=== PATIENT | female | born 1985 | race Caucasian/White ===

== ENCOUNTER 2017-01-21 23:41 | Emergency (ER) | payer OTHER ==
[~2017-01-21] VITALS: Ht 165.1 cm; Wt 117.9 kg
[~2017-01-21 23:41] MED LIST: ALBUTEROL2.5 MG/0.5 INH; AMOXICILLIN500 MG PO; AMOXICILLIN875 MG PO; AUGMENTIN 875 M1 TAB PO; AYGESTIN5 MG PO; BACTROBAN OINT22 GM PO; CIPRODEX 0.3%-7.5 ML OT; CLARITIN-D 12 H1 TAB PO; CORDROL20 MG PO; DARVOCET N 1001 TAB PO; DAYPRO600 M1 PO; DOXYCYCLINE HY100 M3 PO; FLONASE ALLERG9.9 ML NAS; HYCODAN 1.5 MG480 M1 PO; HYCODAN/HYDROMET5 ML PO; KEFLEX500 MG PO; MEDROL DOSEPAK4 MG PO; MOTRIN600 MG PO; MOTRIN800 MG PO; MUCINEX1200 M1 PO; NASAL DECONGEST30 MG PO; NKHM PO; NORFLEX100 MG PO; PERCOCET 325 MG1 TA2 PO; PREDNICOT20 MG PO; PREDNISONE10 MG PO; PROAIR HFA8.5 GM INH; ROBAXIN750 MG PO; SILVADENE,SSD C50 GM PO; TAMIFLU75 MG PO; TESSALON PERLE200 MG PO; TRAMADOL HCL50 MG PO; ULTRAM50 MG PO; VICODIN 5/500 505 MG PO; ZITHROMAX Z PA250 MG PO; ZITHROMAX250 MG PO
[2017-01-22 00:29] LABS: BASO # 0.1 10*3/uL (0.0-0.1); BASO % 0.8 % (0.0-1.0); EOS # 0.3 10*3/uL (0.0-0.4); EOS % 2.5 % (1.0-4.0); HEMATOCRIT 36.2 % (37.0-47.0); LYMPH # 2.6 10*3/uL (1.3-4.4); LYMPH % 23.2 % (27.0-41.0); MEAN CELL VOLUME 78.9 fl (81.0-99.0); MEAN CORPUSCULAR HGB CONC 30.4 g/dl (33.0-37.0); MEAN PLATELET VOLUME 10.3 fl (9.6-12.3); MONO # 0.8 10*3/uL (0.1-1.0); MONO % 6.7 % (3.0-9.0); NEUT # 7.5 10*3/uL (2.3-7.9); NEUT % 66.5 % (47.0-73.0); PLATELET COUNT AUTOMATED 392 10*3/uL (130-400); RED BLOOD COUNT 4.59 10*6/uL (4.10-5.10); RED CELL DISTRI WIDTH 21.5 % (0-14.5); WHITE BLOOD COUNT 11.2 10*3/uL (4.8-10.8)
[2017-01-22 00:44] LABS: BUN 18 mg/dl (7-24); CARBON DIOXIDE 27 mmol/L (21-32); CHLORIDE 106 mmol/L (98-107); EST GLOM FILT AFRICAN AMERICAN > 60 ml/min; GLUCOSE 102 mg/dL (65-99); POTASSIUM 4.3 mmol/L (3.5-5.1); SODIUM 140 mmol/L (136-145)
[2017-01-22 00:45] LABS: C-REACTIVE PROTEIN 1.23 MG/DL (0-0.3); PROTHROMBIN TIME 10.2 SECONDS (9.0-12.4)
[2017-01-22 00:48] LABS: CPK 148 U/L (26-192); TROPONIN I < 0.015 ng/ml (<0.045)
== END 2017-01-22 02:12 | disposition home or self-care (01) ==
LOC: ED 23:41
PROVIDERS: Student in an Organized Health Care Education/Training Program
DX: M79.661 Pain in right lower leg (principal); Z79.82 Long term (current) use of aspirin; Z79.899 Other long term (current) drug therapy

== ENCOUNTER → 2017-01-25 | Outpatient (CLI) | payer OTHER | END | disposition home or self-care (01) | LOC: US 18:49 | DX: M79.605 Pain in left leg (principal); M79.604 Pain in right leg ==

== ENCOUNTER 2017-06-17 06:19 | Emergency (ER) | payer OTHER ==
[~2017-06-17] VITALS: Ht 167.6 cm; Wt 117.0 kg
[2017-06-17] MEDS ORDERED: AVPAK AZITHROM250 M1 PO (06:32)
== END 2017-06-17 06:40 | disposition home or self-care (01) ==
LOC: ED 06:19
DX: J06.9 Acute upper respiratory infection, unspecified (principal); J45.901 Unspecified asthma with (acute) exacerbation; J02.9 Acute pharyngitis, unspecified; Z88.6 Allergy status to analgesic agent; Z88.8 Allergy status to other drugs, medicaments and biological substances

== ENCOUNTER 2017-06-20 00:07 | Emergency (ER) | payer OTHER ==
[~2017-06-20] VITALS: Ht 167.6 cm; Wt 117.0 kg
[~2017-06-20 00:07] MED LIST changes: +AVPAK AZITHROM250 M1 PO
[2017-06-20] MEDS ORDERED: ROBITUSSIN AC 110 ML PO (00:46)
== END 2017-06-20 00:40 | disposition home or self-care (01) ==
LOC: ED 00:07
DX: R05 Cough (principal); Z88.6 Allergy status to analgesic agent; Z88.8 Allergy status to other drugs, medicaments and biological substances

== ENCOUNTER 2017-07-18 21:00 | Emergency (ER) | payer OTHER ==
[~2017-07-18] VITALS: Ht 167.6 cm; Wt 117.9 kg
[~2017-07-18 21:00] MED LIST changes: +ROBITUSSIN AC 110 ML PO
[2017-07-18] MEDS ORDERED: MEDROL DOSEPAK4 MG PO (23:01)
== END 2017-07-18 23:08 | disposition home or self-care (01) ==
LOC: ED 21:00
DX: M54.5 Low back pain (principal); Z88.6 Allergy status to analgesic agent

== ENCOUNTER 2025-04-14 14:25 | Emergency (ER) | payer OTHER ==
[~2025-04-14] VITALS: Ht 167.6 cm; Wt 142.0 kg
[2025-04-14] MEDS ORDERED: FUROSEMIDE 40 MG TAB PO ONE (14:50)
[2025-04-14 15:00] LABS: BASO # 0.1 10*3/uL (0.0-0.1); BASO % 0.6 % (0.0-1.0); EOS # 0.3 10*3/uL (0.0-0.4); EOS % 2.8 % (1.0-4.0); HEMATOCRIT 38.6 % (37.0-47.0); MEAN CELL VOLUME 90.8 fl (81.0-99.0); MEAN CORPUSCULAR HGB 28.7 pg (27.0-31.0); MEAN CORPUSCULAR HGB CONC 31.6 g/dl (33.0-37.0); MEAN PLATELET VOLUME 9.7 fl (9.6-12.3); MONO # 0.7 10*3/uL (0.1-1.0); MONO % 7.7 % (3.0-9.0); NEUT # 6.2 10*3/uL (2.3-7.9); NEUT % 70.4 % (47.0-73.0); PLATELET COUNT AUTOMATED 329 10*3/uL (130-400); RED BLOOD COUNT 4.25 10*6/uL (4.10-5.10); RED CELL DISTRI WIDTH 15.5 % (0-14.5); WHITE BLOOD COUNT 8.8 10*3/uL (4.8-10.8)
[2025-04-14] MEDS ORDERED: ZITUVIO100 MG PO (15:08)
[2025-04-14] MEDS ORDERED: PANTOPRAZOLE SO40 MG PO (15:08)
[2025-04-14] MEDS ORDERED: ATORVASTATIN CA10 M1 PO (15:09)
[2025-04-14] MEDS ORDERED: REMERON15 M2 PO (15:09)
[2025-04-14] MEDS ORDERED: PROZAC20 MG PO (15:10)
[2025-04-14] MEDS ORDERED: AIRSUPRA 90-810.7 GM INH (15:11)
[2025-04-14] MEDS ORDERED: SINGULAIR10 M1 PO (15:12)
[2025-04-14] MEDS ORDERED: BUDESONIDE-FO10.2 GM INH (15:12)
[2025-04-14] MEDS ORDERED: CETIRIZINE10 MG PO (15:14)
[2025-04-14] MEDS ORDERED: LOSARTAN POTASS25 M1 PO (15:14)
[2025-04-14 15:28] LABS: ALKALINE PHOSPHATASE 63 U/L (46-116); BUN 10 mg/dl (9-23); CHLORIDE 103 mmol/L (98-107); POTASSIUM 3.9 mmol/L (3.4-5.1); SGPT/ALT 33 U/L (5-49); TOTAL PROTEIN 6.5 gm/dL (6.0-8.0)
[2025-04-14] MEDS ORDERED: LASIX40 MG PO (16:36)
== END 2025-04-14 16:42 | disposition home or self-care (01) ==
LOC: ED 14:25
PROVIDERS: Internal Medicine
DX: R60.0 Localized edema (principal); E11.9 Type 2 diabetes mellitus without complications; J45.909 Unspecified asthma, uncomplicated; Z79.899 Other long term (current) drug therapy; Z88.6 Allergy status to analgesic agent; Z88.8 Allergy status to other drugs, medicaments and biological substances; Z98.890 Other specified postprocedural states